=== PATIENT | female | born 1970 | race Caucasian/White ===

== ENCOUNTER 2022-02-04 17:37 | Emergency (ER) | payer SELFPAY ==
[~2022-02-04] VITALS: Ht 165.1 cm; Wt 63.5 kg
[2022-02-04] MEDS ORDERED: ONDA4ODT MM (22:02)
[2022-02-04] MEDS ORDERED: METO10 PO (22:02)
== END 2022-02-04 22:31 | disposition home or self-care (01) ==
LOC: ER 17:37
DX: R51.9 Headache, unspecified (principal); R11.2 Nausea with vomiting, unspecified; R06.02 Shortness of breath; H53.9 Unspecified visual disturbance
CPT/HCPCS: 96374; 99283-25; A9270; J1790

== ENCOUNTER 2022-02-22 10:13 | Emergency (ER) | payer SELFPAY ==
[~2022-02-22] VITALS: Ht 165.1 cm; Wt 63.5 kg
[~2022-02-22 10:13] MED LIST: METO10 PO; ONDA4ODT MM
[2022-02-22] MEDS ORDERED: ITRA100 PO ×2 (10:59→11:08)
[2022-02-22] MEDS ORDERED: ALBU90OI INH (11:08)
[2022-02-22] MEDS ORDERED: LIDOCAINE15 GM TOP (11:09)
== END 2022-02-22 11:21 | disposition home or self-care (01) ==
LOC: ER 10:13
DX: B42.9 Sporotrichosis, unspecified (principal)
CPT/HCPCS: A9270

== ENCOUNTER 2022-07-25 08:01 | Day surgery (SDC) | payer OTHER ==
[~2022-07-25] VITALS: Ht 165.1 cm; Wt 72.7 kg
[~2022-07-25 08:01] MED LIST changes: +ALBU90OI INH; +ITRA100 PO; +LIDOCAINE15 GM TOP
[2022-07-25] MEDS ORDERED: FERSU300 (08:16)
[2022-07-25] MEDS ORDERED: Vitamin B-1250 MC1 (08:16)
[2022-07-25] MEDS ORDERED: SYMBICORT 160-4.6 GM (08:16)
== END 2022-07-25 11:25 | disposition home or self-care (01) ==
LOC: ORSCSDS 08:01
PROVIDERS: Internal Medicine Gastroenterology
PROC: 0DBP8ZX Excision of Rectum, Via Natural or Artificial Opening Endoscopic, Diagnostic (ICD-10-PCS; principal; 2022-07-25 09:30)
PROC: 0DBL8ZX Excision of Transverse Colon, Via Natural or Artificial Opening Endoscopic, Diagnostic (ICD-10-PCS; principal; 2022-07-25 09:30)
DX: K52.9 Noninfective gastroenteritis and colitis, unspecified (principal); Z85.038 Personal history of other malignant neoplasm of large intestine; Z86.010 Personal history of colon polyps; D12.3 Benign neoplasm of transverse colon; K62.1 Rectal polyp; D50.9 Iron deficiency anemia, unspecified; K62.5 Hemorrhage of anus and rectum; F17.210 Nicotine dependence, cigarettes, uncomplicated; J43.9 Emphysema, unspecified; Z79.899 Other long term (current) drug therapy
CPT/HCPCS: 88305; J2704; J7120

== ENCOUNTER → 2023-04-27 | Outpatient (CLI) | payer OTHER ==
[~2023-04-27] MED LIST changes: +FERSU300; +SYMBICORT 160-4.6 GM; +Vitamin B-1250 MC1
[2023-04-29 03:38] LABS: A/G RATIO 1.4 (1.2-2.2); BILIRUBIN, TOTAL 0.2 mg/dL (0.0-1.2); CALCIUM, SERUM 9.8 mg/dL (8.7-10.2); CREATININE, SERUM 0.86 mg/dL (0.57-1.00); GLOBULIN, TOTAL 3.1 g/dL (1.5-4.5); POTASSIUM, SERUM 4.6 mmol/L (3.5-5.2); PROTEIN, TOTAL, SERUM 7.5 g/dL (6.0-8.5)
== END ==
LOC: LAB 13:08 → LAB SHORT 13:08
PROVIDERS: Family Medicine
DX: B42.89 Other forms of sporotrichosis (principal)
CPT/HCPCS: 80053

== ENCOUNTER 2023-05-22 09:00 | Emergency (ER) | payer OTHER ==
[~2023-05-22] VITALS: Ht 165.1 cm; Wt 68.0 kg
[2023-05-22 10:15] LABS: BASOPHILS ABSOLUTE AUTO 0.03 K/mm3 (0.00-0.23); BASOPHILS PERCENT AUTO 1 % (0-2); EOSINOPHILS ABSOLUTE AUTO 0.22 K/mm3 (0.00-0.68); EOSINOPHILS PERCENT AUTO 4 % (0-6); Hematocrit 40.1 % (33.0-51.0); Hemoglobin 13.3 g/dL (11.5-16.0); IMMATURE GRAN ABSOLUTE AUTO 0.01 K/mm3 (0.00-0.10); IMMATURE GRAN PERCENT AUTO 0 % (0-1); LYMPHOCYTES ABSOLUTE AUTO 1.23 K/mm3 (0.84-5.20); LYMPHOCYTES PERCENT AUTO 22 % (21-46); MONOCYTES ABSOLUTE AUTO 0.44 K/mm3 (0.16-1.47); MONOCYTES PERCENT AUTO 8 % (4-13); Mean Corpuscular HGB 30.5 pg (26.0-34.0); Mean Corpuscular HGB Conc 33.2 g/dL (31.5-36.5); Mean Corpuscular Volume 92 fL (80-100); NEUTROPHILS ABSOLUTE AUTO 3.55 K/mm3 (1.96-9.15); NEUTROPHILS PERCENT AUTO 65 % (41-73); Platelet Count 348 K/mm3 (150-400); RDW Coefficient Variation 14.1 % (11.7-14.2); RDW Standard Deviation 48.1 fL (35.1-46.3); Red Blood Cell Count 4.36 M/mm3 (3.80-5.20); White Blood Cell Count 5.48 K/mm3 (4.00-11.30)
[2023-05-22 10:35] LABS: Albumin, Blood 3.3 g/dL (3.4-5.0); Albumin/Globulin Ratio 0.9 (0.8-1.8); Bilirubin, Total 0.3 mg/dL (0.1-1.0); Bun/Creatinine Ratio 29.6 (12.0-20.0); Calcium, Blood 8.8 mg/dL (8.5-10.1); Creatinine, Blood 0.71 mg/dL (0.40-1.00); Globulin, Blood 3.8 g/dL (2.2-4.0); Potassium, Blood 4.4 mmol/L (3.5-5.5); Total Protein, Blood 7.1 g/dL (6.4-8.2)
[2023-05-22 11:47] VITALS: BP 124/88
== END 2023-05-22 12:07 | disposition home or self-care (01) ==
LOC: ER 09:00
PROVIDERS: Physician Assistant
DX: M50.121 Cervical disc disorder at C4-C5 level with radiculopathy (principal); M50.122 Cervical disc disorder at C5-C6 level with radiculopathy; M47.22 Other spondylosis with radiculopathy, cervical region; M48.02 Spinal stenosis, cervical region; J45.909 Unspecified asthma, uncomplicated; Z79.51 Long term (current) use of inhaled steroids; Z79.899 Other long term (current) drug therapy
CPT/HCPCS: 72156; 80053; 85025; 99284-25; A9579

== ENCOUNTER 2024-12-02 08:52 | Emergency (ER) | payer OTHER ==
[~2024-12-02] VITALS: Ht 165.1 cm; Wt 77.1 kg
[2024-12-02] MEDS ORDERED: NS 1,000 ML IV SCH (09:20)
[2024-12-02] MEDS ORDERED: FentaNYL Citrate 50 MCG/ML 2 ML Injection IV ONE (09:25)
[2024-12-02 09:27] LABS: BASOPHILS ABSOLUTE AUTO 0.03 K/mm3 (0.00-0.23); BASOPHILS PERCENT AUTO 0 % (0-2); EOSINOPHILS ABSOLUTE AUTO 0.13 K/mm3 (0.00-0.68); EOSINOPHILS PERCENT AUTO 2 % (0-6); Hematocrit 41.4 % (33.0-51.0); Hemoglobin 13.6 g/dL (11.5-16.0); IMMATURE GRAN ABSOLUTE AUTO 0.02 K/mm3 (0.00-0.10); IMMATURE GRAN PERCENT AUTO 0 % (0-1); LYMPHOCYTES ABSOLUTE AUTO 1.17 K/mm3 (0.84-5.20); LYMPHOCYTES PERCENT AUTO 15 % (21-46); MONOCYTES ABSOLUTE AUTO 0.50 K/mm3 (0.16-1.47); MONOCYTES PERCENT AUTO 7 % (4-13); Mean Corpuscular HGB Conc 32.9 g/dL (31.5-36.5); Mean Corpuscular Volume 94 fL (80-100); NEUTROPHILS ABSOLUTE AUTO 5.83 K/mm3 (1.96-9.15); NEUTROPHILS PERCENT AUTO 76 % (41-73); NRBC ABSOLUTE 0.00 K/mm3 (0.00-0.02); NRBC Auto 0.0 /100 WBC (0.0-0.2); Platelet Count 356 K/mm3 (150-400); RDW Coefficient Variation 13.7 % (11.7-14.2); RDW Standard Deviation 47.4 fL (35.1-46.3)
[2024-12-02 09:45] LABS: Alanine Aminotransfer (ALT/SGP 73.0 U/L (12-78); Albumin, Blood 3.5 g/dL (3.4-5.0); Albumin/Globulin Ratio 0.9 (0.8-1.8); Anion Gap 9.0 mmol/L (3-11); Aspartate Aminotrans (AST/SGOT 36.0 U/L (12-37); Bilirubin, Total 0.3 mg/dL (0.1-1.0); Blood Urea Nitrogen 18.0 mg/dL (8-24); CO2, Blood 28.0 mmol/L (21-32); Calcium, Blood 8.4 mg/dL (8.5-10.1); Chloride, Blood 102.0 mmol/L (98-108); Creatinine, Blood 0.61 mg/dL (0.40-1.00); Globulin, Blood 4.0 g/dL (2.2-4.0); Glucose, Blood 90.0 mg/dL (70-99); Potassium, Blood 3.6 mmol/L (3.5-5.5); Sodium, Blood 135.0 mmol/L (136-145); Total Protein, Blood 7.5 g/dL (6.4-8.2)
[2024-12-02] MEDS ORDERED: Ketorolac Tromethamine 15mg Vial IV ONE (10:25)
[2024-12-02] MEDS ORDERED: LIDO700A20 TOP (12:18)
[2024-12-02] MEDS ORDERED: IBUP800 PO (12:18)
[2024-12-02] MEDS ORDERED: Robaxin750 MG PO (12:18)
[2024-12-02 13:00] VITALS: BP 185/101
== END 2024-12-02 13:17 | disposition home or self-care (01) ==
LOC: ER 08:52
PROVIDERS: Student in an Organized Health Care Education/Training Program
DX: R07.89 Other chest pain (principal); F17.200 Nicotine dependence, unspecified, uncomplicated; Z79.899 Other long term (current) drug therapy
CPT/HCPCS: 71046; 80053; 84484; 85025; 85379; 93005; 93010; 96361; 96374; 96375; 99285-25; J1885; J3010; J7030

== ENCOUNTER 2025-03-20 07:49 | Emergency (ER) | payer OTHER ==
[~2025-03-20] VITALS: Ht 165.1 cm; Wt 77.1 kg
[~2025-03-20 07:49] MED LIST changes: +IBUP800 PO; +LIDO700A20 TOP; +Robaxin750 MG PO
[2025-03-20] MEDS ORDERED: Methyl Salicylate/Menth/Camph 57 GM TUBE TOP ONE (10:10)
[2025-03-20] MEDS ORDERED: Ketorolac Tromethamine 30mg Vial IM ONE (10:10)
[2025-03-20] MEDS ORDERED: DiphenhydrAMINE HCL/Zinc Acet Cream TOP ONE (11:10)
[2025-03-20] MEDS ORDERED: GABA300 PO (12:54)
[2025-03-20] MEDS ORDERED: Robaxin750 MG PO (12:54)
[2025-03-20] MEDS ORDERED: FAMO20 PO (12:54)
[2025-03-20] MEDS ORDERED: IBUP600 PO (12:54)
[2025-03-20 13:20] VITALS: BP 132/77
== END 2025-03-20 13:21 | disposition home or self-care (01) ==
LOC: ER 07:49
DX: M62.830 Muscle spasm of back (principal); M54.2 Cervicalgia; G89.29 Other chronic pain; J45.909 Unspecified asthma, uncomplicated; F17.210 Nicotine dependence, cigarettes, uncomplicated; Z87.39 Personal history of other diseases of the musculoskeletal system and connective tissue; Z79.51 Long term (current) use of inhaled steroids; Z79.899 Other long term (current) drug therapy
CPT/HCPCS: 96374; 99283-25; A9270; J1885